=== PATIENT | female | born 1965 | race African-American/Black ===

== ENCOUNTER 2016-12-23 18:43 | Emergency (ER) | payer MEDICARE, MEDICAID ==
[~2016-12-23] VITALS: Ht 167.6 cm; Wt 74.0 kg
[~2016-12-23 18:43] MED LIST: ANUHCC; CALC1TAB17; CEPH-569 PO; DIAZ10TA; [UNRECOGNIZED DRUG - CODE]
[2016-12-23 18:54] VITALS: BP 140/78
== END 2016-12-24 01:13 | disposition left against medical advice (07) ==
LOC: ER 23:56
DX: R06.02 Shortness of breath (principal); Z53.21 Procedure and treatment not carried out due to patient leaving prior to being seen by health care provider